=== PATIENT | female | born 1955 | race Caucasian/White ===

== ENCOUNTER 2017-05-01 14:06 | Emergency (ER) | payer OTHER ==
[~2017-05-01] VITALS: Ht 162.6 cm; Wt 76.6 kg
[~2017-05-01 14:06] MED LIST: MULT-516 PO; OMEP20TA62 PO; POTA10CA PO; TRAZ100T15 PO
[2017-05-01 14:29] VITALS: BP 139/85
[2017-05-01] MEDS ORDERED: METHOCARBAMOL 750 MG TABLET ONE (15:11)
[2017-05-01] MEDS ORDERED: HYDROcodone/APAP 5/325 TABLET ONE (15:11)
[2017-05-01] MEDS ORDERED: IBUPROFEN 200 MG TABLET ONE (15:12)
[2017-05-01] MEDS ORDERED: IBUPROFEN 200 MG TABLET PO ONE (15:30)
[2017-05-01] MEDS ORDERED: METHOCARBAMOL 750 MG TABLET PO ONE (15:30)
[2017-05-01] MEDS ORDERED: HYDROcodone/APAP 5/325 TABLET PO ONE (15:30)
== END 2017-05-01 16:12 | disposition home or self-care (01) ==
LOC: ED 16:06
DX: S33.5XXA Sprain of ligaments of lumbar spine, initial encounter (principal); K21.9 Gastro-esophageal reflux disease without esophagitis; Z90.49 Acquired absence of other specified parts of digestive tract; Z90.710 Acquired absence of both cervix and uterus; Z88.0 Allergy status to penicillin; Z88.2 Allergy status to sulfonamides; X58.XXXA Exposure to other specified factors, initial encounter; Y93.89 Activity, other specified; Y92.89 Other specified places as the place of occurrence of the external cause; Y99.9 Unspecified external cause status
CPT/HCPCS: 72110; 82962; 99284

== ENCOUNTER 2019-03-18 20:40 | Emergency (ER) | payer OTHER ==
[~2019-03-18] VITALS: Ht 162.6 cm; Wt 79.6 kg
[2019-03-19 00:02] VITALS: BP 105/65
== END 2019-03-19 01:22 | disposition home or self-care (01) ==
LOC: ED 23:59
DX: S39.012A Strain of muscle, fascia and tendon of lower back, initial encounter (principal); R10.9 Unspecified abdominal pain; R31.9 Hematuria, unspecified; K21.9 Gastro-esophageal reflux disease without esophagitis; Z90.49 Acquired absence of other specified parts of digestive tract; Z90.710 Acquired absence of both cervix and uterus; X58.XXXA Exposure to other specified factors, initial encounter; Y93.89 Activity, other specified; Y92.89 Other specified places as the place of occurrence of the external cause; Y99.8 Other external cause status
CPT/HCPCS: 36415; 74176; 80053; 81001; 85025; 87086; 93005; 96374; 96375; 99284; J1885; J2405

== ENCOUNTER 2020-12-23 15:03 | Emergency (ER) | payer MEDICARE, OTHER ==
[~2020-12-23] VITALS: Ht 162.6 cm; Wt 83.0 kg
[~2020-12-23 15:03] MED LIST changes: +TRAZ-175 PO; -TRAZ100T15 PO
--- NOTE | 2020-12-23 15:16 | NUR ---
BIBA FOR TARRY BLACK STOOLS, COUGHING UP BLOOD, DULL RUQ 7/10 PAIN, EPIGASTRIC PAIN, AND NAUSEA X 2 DAYS. PT STATES ON December SHE GOT A TOTAL RIGHT KNEE REPLACEMENT DONE AT [facility]. PT HAS HX OF GERD AND STATES SHE TAKES OMEPRAZOLE. PT ALSO SAYS SHE IS TAKING 324 MG OF ASPIRIN BID. BLOOD SUGAR FROM EMS WAS 149 AND 2O GUAGE PIV STARTED AND 4 MG ZOFRAN GIVEN BY EMS. FAMILY AT BEDSIDE
[2020-12-23] MEDS ORDERED: HYDROmorphone 1 MG/ML, 1ML INJ IV ONE (16:00)
[2020-12-23] MEDS ORDERED: SODIUM CHLORIDE 0.9% 1,000ML IVBOLUS ONE (16:00)
[2020-12-23] MEDS ORDERED: SODIUM CHLORIDE FLUSH 10ML SYR IVF ONE (16:00)
[2020-12-23] MEDS ORDERED: HYDROmorphone 1 MG/ML, 1ML INJ ONE (16:25)
[2020-12-23 16:27] LABS: BASOPHILS % (AUTO) 1 % (0-1); EOSINOPHILS % (AUTO) 3 % (1-7); LYMPHOCYTES % (AUTO) 22 % (22-44); MD NO; MEAN CORPUSCULAR HEMOGLOBIN 31.3 pg (27.0-34.8); MEAN CORPUSCULAR HGB CONC 34.8 g/dL (32.4-35.8); MEAN PLATELET VOLUME 8.3 fL (7.4-10.4); MONOCYTES % (AUTO) 8 % (2-9); NEUTROPHILS % (AUTO) 67 % (42-75); PLATELET COUNT 288 x10^3/uL (130-400); RED BLOOD COUNT 4.35 x10^6/uL (3.82-5.3)
[2020-12-23 16:31] LABS: ALANINE AMINOTRANSFERASE 37 U/L (12-78); ALBUMIN 3.7 g/dL (3.4-5.0); ANION GAP 12 mmol/L (5-15); CALCIUM 9.1 mg/dL (8.5-10.1); CHLORIDE 107 mmol/L (98-107); CREATININE 0.72 mg/dL (0.55-1.02)
[2020-12-23 16:36] LABS: ALKALINE PHOSPHATASE 84 U/L (45-117); BILIRUBIN,TOTAL 0.7 mg/dL (0.2-1.0); TOTAL PROTEIN 7.4 g/dL (6.4-8.2); TROPONIN I < 0.015 ng/mL (0.000-0.045)
--- NOTE | 2020-12-23 16:41 | NUR ---
PT AMBULATORY TO BATHROOM CONTACT X 1. UA COLLECTED AND SENT TO LAB
[2020-12-23 17:01] LABS: MICROSCOPIC INDICATED
[2020-12-23] MEDS ORDERED: PANTOPRAZOLE 40 MG IV IVPush ONE (17:30)
[2020-12-23] MEDS ORDERED: MAALOX/HYOSCYAMINE/LIDOCAINE 45 ML BTL PO ONE (17:30)
[2020-12-23] MEDS ORDERED: PANTOPRAZOLE 40 MG IV ONE (17:31)
[2020-12-23] MEDS ORDERED: MAALOX/HYOSCYAMINE/LIDOCAINE 45 ML BTL ONE (17:31)
[2020-12-23] MEDS ORDERED: KETOROLAC 60 MG/2 ML ONE (18:02)
[2020-12-23 18:27] VITALS: BP 128/80
== END 2020-12-23 18:30 | disposition home or self-care (01) ==
LOC: ED 15:32
DX: K21.9 Gastro-esophageal reflux disease without esophagitis (principal); R07.89 Other chest pain; R94.31 Abnormal electrocardiogram [ECG] [EKG]; Z90.710 Acquired absence of both cervix and uterus; Z90.49 Acquired absence of other specified parts of digestive tract; Z96.659 Presence of unspecified artificial knee joint
CPT/HCPCS: 36415; 71045; 80053; 81001; 83690; 84484; 85025; 87077; 87086; 87186; 93005; 96361; 96374; 96375; 99285; C9113; J1170; J7030; 99284